=== PATIENT | male | born 1965 | race Caucasian/White ===

== ENCOUNTER 2017-06-23 03:18 | Emergency (ER) | payer MEDICARE, BC ==
[2017-06-23] MEDS ORDERED: METOCLOPRAMIDE 5 MG/ML 2 ML VIAL IVP STA (03:23)
[2017-06-23] MEDS ORDERED: SODIUM CHLORIDE 0.9% 1,000 ML IV STA (03:23)
--- NOTE | 2017-06-23 03:26 | ED ---
General Adult HPI - General Source: patient, RN notes reviewed Mode of arrival: EMS Limitations: no limitations <Evie Bradley - Last Filed: 06/23/17 03:50> <Golden Gonzalez - Last Filed: 06/23/17 05:20> - General Chief complaint: Nausea/Vomiting/Diarrhea Stated complaint: Vomiting/Weakness Time Seen by Provider: 06/23/17 03:19 - History of Present Illness Initial comments: 52-year-old male presents emergency Department chief complaint of nausea vomiting. This started around 2:00. He states while he was trying up he got lightheaded. He states the chest pain or shortness of breath. He has a history of heart issues but states this is nothing like that. Patient states he did eat fish tonight from a different restaurant is wondering if it's related to that. Patient denies any diarrhea any abdominal pain. Patient states after throwing up he does feel somewhat better. Patient was concerned due to his symptoms without that he should be seen. Patient denies any recent fever, chills, shortness of breath, chest pain, back pain, numbness or tingling , dysuria or hematuria, constipation or diarrhea, headaches or visual changes, or any other current symptoms. (Evie Bradley) Patient had several episodes of nausea and vomiting. This was after eating greasy fish. Denies any abdominal pain. Denies chest pain or shortness of breath. Did have some lightheadedness with the episode. (Golden Gonzalez) - Related Data Home Medications Medication Instructions Recorded Confirmed Aspirin 81 mg PO DAILY 01/19/15 01/19/15 Atorvastatin [Lipitor] 80 mg PO HS 01/19/15 01/19/15 Calcium Acetate [PhosLo] 667 mg PO AC-TID 01/19/15 01/19/15 Carvedilol [Coreg] 25 mg PO BID 01/19/15 01/19/15 Clopidogrel [Plavix] 75 mg PO DAILY 01/19/15 01/19/15 Ferrous Gluconate 325 mg PO DAILY 01/19/15 01/19/15 Furosemide [Lasix] 40 mg PO HS 01/19/15 01/19/15 Furosemide [Lasix] 80 mg PO DAILY 01/19/15 01/19/15 INSULIN LISPRO (humaLOG) [humaLOG 7 units INJ AC-TID 01/19/15 01/19/15 (formulary)] Insulin Glargine [Lantus] 25 unit SQ DAILY 01/19/15 01/19/15 Isosorbide Mononitrate ER [Imdur] 60 mg PO DAILY 01/19/15 01/19/15 Allergies Allergy/AdvReac Type Severity Reaction Status Date / Time No Known Allergies Allergy Verified 06/23/17 03:23 Review of Systems ROS Other: All systems not noted in ROS Statement are negative. <Evie Bradley - Last Filed: 06/23/17 03:50> ROS Other: All systems not noted in ROS Statement are negative. <Golden Gonzalez - Last Filed: 06/23/17 05:20> ROS Statement: Those systems with pertinent positive or pertinent negative responses have been documented in the HPI. 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 Last Myocardial Infarction Date:: 2012 History of Any Multi-Drug Resistant Organisms: None Reported Past Surgical History: No Surgical Hx Reported, Heart Catheterization Additional Past Surgical History / Comment(s): 2013 peritoneal dialysis cath Past Anesthesia/Blood Transfusion Reactions: No Reported Reaction Past Psychological History: No Psychological Hx Reported Smoking Status: Former smoker Past Alcohol Use History: None Reported, Occasional Past Drug Use History: None Reported - Past Family History Father Family Medical History: Congestive Heart Failure (CHF), Coronary Artery Disease (CAD), Diabetes Mellitus <Evie Bradley - Last Filed: 06/23/17 03:50> General Exam Limitations: no limitations <Evie Bradley - Last Filed: 06/23/17 03:50> <Golden Gonzalez - Last Filed: 06/23/17 05:20> - General Exam Comments Initial Comments: General: The patient is awake and alert, in no distress, and does not appear acutely ill. Eye: Pupils are equal, round and reactive to light, extra-ocular movements are intact; there is normal conjunctiva bilaterally. No signs of icterus. Ears, nose, mouth and throat: There are moist mucous membranes and no oral lesions. Neck: The neck is supple, there is no tenderness. Cardiovascular: There is a regular rate and rhythm. No murmur, rub or gallop is appreciated. Respiratory: Lungs are clear to auscultation, respirations are non-labored, breath sounds are equal. No wheezes, stridor, rales, or rhonchi. Gastrointestinal: Soft, non-distended, non-tender abdomen without masses or organomegaly noted. There is no rebound or guarding present. No CVA tenderness. Bowel sounds are unremarkable. Back: There is no tenderness to palpation in the midline. There is no obvious deformity. No rashes noted. Musculoskeletal: Normal ROM, no tenderness, There is no pedal edema. There is no calf tenderness or swelling. Sensation intact. Pulses equal bilaterally 2+. Neurological: CN II-XII intact, There are no obvious motor or sensory deficits. Coordination appears grossly intact. Speech is normal. Skin: Skin is warm and dry and no rashes or lesions are noted. Psychiatric: Cooperative, appropriate mood & affect, normal judgment. (Evie Bradley) Course <Evie Bradley - Last Filed: 06/23/17 03:50> <Golden Gonzalez - Last Filed: 06/23/17 05:20> Vital Signs 06/23/17 03:21 Temperature 97.2 F L Pulse Rate 83 Respiratory 20 Rate Blood Pressure 194/98 O2 Sat by Pulse 100 Oximetry - Reevaluation(s) Reevaluation #1: 06/23/17 05:18 I reevaluation, patient is feeling better, no episodes of nausea vomiting the emergency department. Patient denies any pain complaints. (Golden Gonzalez) EKG Findings - EKG Comments: EKG Findings:: normal sinus rhythm 76 bpm, normal axis, no atopy, no S-T depressions or elevations, <Evie Bradley - Last Filed: 06/23/17 03:50> Medical Decision Making <Evie Bradley - Last Filed: 06/23/17 03:50> - Lab Data Result diagrams: 06/23/17 03:55 06/23/17 03:55 <Golden Gonzalez - Last Filed: 06/23/17 05:20> - Medical Decision Making 52-year-old male presents emergency Department chief complaint of nausea vomiting after eating fish at a different resturant. (Evie Bradley) 52-year-old male presenting with nausea and vomiting. Patient had minimal nausea time of presentation. States he had 3 episodes of vomiting. He did have some greasy fried fish earlier this evening. He does not normally eat fried foods. Patient has had history of coronary artery bypass graft, renal transplant, diabetes and hypertension. He denies any associated symptoms. Denies fever, denies abdominal pain, denies chest pain, denies shortness of breath. Laboratory studies including CBC, CMP, and cardiac enzymes are unremarkable. Chest x-ray shows no acute process. EKG is obtained given the nausea which is normal sinus rhythm with no signs of ischemia or infarction. Abdominal x-ray does show a large amount of colonic stool. Patient states his last bowel movement was today and states he has to go again at this time. Patient is offered observation, he declines. He will return to the emergency department with worsening symptoms or the development of chest pain or shortness of breath, fever chills, or worsening nausea and vomiting. Patient is able to follow up with his primary care physician in the next 24-48 hours. Diagnosis: Nausea vomiting (Golden Gonzalez) - Lab Data Lab Results 06/23/17 06/23/17 06/23/17 Range/Units 03:55 03:55 03:55 WBC 8.6 (3.8-10.6) k/uL RBC 4.01 L (4.30-5.90) m/uL Hgb 10.5 L (13.0-17.5) gm/dL Hct 35.1 L (39.0-53.0) % MCV 87.4 (80.0-100.0) fL MCH 26.2 (25.0-35.0) pg MCHC 29.9 L (31.0-37.0) g/dL RDW 19.0 H (11.5-15.5) % Plt Count 338 (150-450) k/uL Neutrophils % 81 % Lymphocytes % 10 % Monocytes % 6 % Eosinophils % 1 % Basophils % 1 % Neutrophils # 6.9 (1.3-7.7) k/uL Lymphocytes # 0.9 L (1.0-4.8) k/uL Monocytes # 0.5 (0-1.0) k/uL Eosinophils # 0.1 (0-0.7) k/uL Basophils # 0.1 (0-0.2) k/uL Hypochromasia Moderate Anisocytosis Slight PT (9.0-12.0) sec INR (<1.2) APTT (22.0-30.0) sec Sodium 141 (137-145) mmol/L Potassium 4.4 (3.5-5.1) mmol/L Chloride 105 (98-107) mmol/L Carbon Dioxide 27 (22-30) mmol/L Anion Gap 9 mmol/L BUN 18 (9-20) mg/dL Creatinine 0.84 (0.66-1.25) mg/dL Est GFR (MDRD) Af Amer >60 (>60 ml/min/1.73 sqM) Est GFR (MDRD) Non-Af >60 (>60 ml/min/1.73 sqM) Glucose 232 H (74-99) mg/dL Calcium 8.6 (8.4-10.2) mg/dL Magnesium 1.8 (1.6-2.3) mg/dL Total Bilirubin 0.3 (0.2-1.3) mg/dL AST 12 L (17-59) U/L ALT 30 (21-72) U/L Alkaline Phosphatase 104 (38-126) U/L Total Creatine Kinase 26 L (55-170) U/L CK-MB (CK-2) 1.1 (0.0-2.4) ng/mL CK-MB (CK-2) Rel Index 4.2 Troponin I <0.012 (0.000-0.034) ng/mL Total Protein 6.6 (6.3-8.2) g/dL Albumin 3.3 L (3.5-5.0) g/dL Amylase <30 L (30-110) U/L Lipase 37 (23-300) U/L 06/23/17 Range/Units 03:55 WBC (3.8-10.6) k/uL RBC (4.30-5.90) m/uL Hgb (13.0-17.5) gm/dL Hct (39.0-53.0) % MCV (80.0-100.0) fL MCH (25.0-35.0) pg MCHC (31.0-37.0) g/dL RDW (11.5-15.5) % Plt Count (150-450) k/uL Neutrophils % % Lymphocytes % % Monocytes % % Eosinophils % % Basophils % % Neutrophils # (1.3-7.7) k/uL Lymphocytes # (1.0-4.8) k/uL Monocytes # (0-1.0) k/uL Eosinophils # (0-0.7) k/uL Basophils # (0-0.2) k/uL Hypochromasia Anisocytosis PT 10.0 (9.0-12.0) sec INR 1.0 (<1.2) APTT 26.6 (22.0-30.0) sec Sodium (137-145) mmol/L Potassium (3.5-5.1) mmol/L Chloride (98-107) mmol/L Carbon Dioxide (22-30) mmol/L Anion Gap mmol/L BUN (9-20) mg/dL Creatinine (0.66-1.25) mg/dL Est GFR (MDRD) Af Amer (>60 ml/min/1.73 sqM) Est GFR (MDRD) Non-Af (>60 ml/min/1.73 sqM) Glucose (74-99) mg/dL Calcium (8.4-10.2) mg/dL Magnesium (1.6-2.3) mg/dL Total Bilirubin (0.2-1.3) mg/dL AST (17-59) U/L ALT (21-72) U/L Alkaline Phosphatase (38-126) U/L Total Creatine Kinase (55-170) U/L CK-MB (CK-2) (0.0-2.4) ng/mL CK-MB (CK-2) Rel Index Troponin I (0.000-0.034) ng/mL Total Protein (6.3-8.2) g/dL Albumin (3.5-5.0) g/dL Amylase (30-110) U/L Lipase (23-300) U/L Disposition <Evie Bradley - Last Filed: 06/23/17 03:50> Time of Disposition: 05:20 <Golden Gonzalez - Last Filed: 06/23/17 05:20> Clinical Impression: Nausea & vomiting Disposition: HOME SELF-CARE Condition: Good Instructions: Acute Nausea and Vomiting (ED) Referrals: Pedro Grayson MD [STAFF PHYSICIAN] - 1-2 days
[2017-06-23 04:07] LABS: Anisocytosis Slight; Basophils # (A) 0.1 k/uL (0-0.2); Basophils % (A) 1 %; CH 26.6; CHCM 30.6; Eosinophils # (A) 0.1 k/uL (0-0.7); Eosinophils % (A) 1 %; HCT 35.1 % (39.0-53.0); HDW 2.78; HGB 10.5 gm/dL (13.0-17.5); Hypochromasia Moderate; Luc # (Auto) 0.14; Luc % (Auto) 2; Lymphocytes # (A) 0.9 k/uL (1.0-4.8); Lymphocytes % (A) 10 %; MCH 26.2 pg (25.0-35.0); MCHC 29.9 g/dL (31.0-37.0); MCV 87.4 fL (80.0-100.0); Mean Platelet Volume 7.5; Monocytes # (A) 0.5 k/uL (0-1.0); Monocytes % (A) 6 %; Neutrophils # (A) 6.9 k/uL (1.3-7.7); Neutrophils % (A) 81 %; RBC 4.01 m/uL (4.30-5.90); WBC 8.6 k/uL (3.8-10.6)
[2017-06-23 04:16] LABS: ALT 30 U/L (21-72); AST 12 U/L (17-59); Alkaline Phosphatase 104 U/L (38-126); Amylase <30 U/L (30-110); Anion Gap 9 mmol/L; Blood Urea Nitrogen 18 mg/dL (9-20); Calcium 8.6 mg/dL (8.4-10.2); Carbon Dioxide 27 mmol/L (22-30); Chloride 105 mmol/L (98-107); Glucose 232 mg/dL (74-99); Magnesium 1.8 mg/dL (1.6-2.3); Non-African American GFR(MDRD) >60 (>60 ml/min/1.73 sqM); Partial Thromboplastin Time 26.6 sec (22.0-30.0); Potassium 4.4 mmol/L (3.5-5.1); Sodium 141 mmol/L (137-145); Total Bilirubin 0.3 mg/dL (0.2-1.3); Total Protein 6.6 g/dL (6.3-8.2)
--- NOTE | 2017-06-23 04:22 | XR ---
EXAM: XR Abdomen Complete, 2 or More Views CLINICAL HISTORY: Reason: Pain TECHNIQUE: Frontal view of the abdomen/pelvis with upright view of the abdomen. COMPARISON: No relevant prior studies available. FINDINGS: Intraperitoneal space: No free air. Gastrointestinal tract: Colonic fecal stasis. Bones/joints: Unremarkable. IMPRESSION: Colonic fecal stasis.
--- NOTE | 2017-06-23 04:22 | XR ---
EXAM: XR Chest, 2 Views CLINICAL HISTORY: Reason: Chest Pain TECHNIQUE: Frontal and lateral views of the chest. COMPARISON: 01/19/15 FINDINGS: Lungs: Unremarkable. No consolidation. Pleural space: Unremarkable. No pneumothorax. Heart: Mild cardiomegaly. CABG changes noted. Mediastinum: Unremarkable. Bones/joints: Unremarkable. Tubes, lines and devices: Right arm PICC line in place with tip in the SVC. IMPRESSION: No acute findings.
[2017-06-23 04:37] LABS: Creatine Kinase 26 U/L (55-170)
[2017-06-23 04:50] LABS: Creatine Kinase MB 1.1 ng/mL (0.0-2.4); Troponin I <0.012 ng/mL (0.000-0.034)
[2017-06-23 05:33] VITALS: BP 120/51; PULSE 88; RESP 16; TEMP 97.3
== END 2017-06-23 05:31 | disposition home or self-care (01) ==
LOC: EC 03:18
DX: R11.2 Nausea with vomiting, unspecified (principal); R42 Dizziness and giddiness; I25.10 Atherosclerotic heart disease of native coronary artery without angina pectoris; I11.0 Hypertensive heart disease with heart failure; I50.9 Heart failure, unspecified; E78.5 Hyperlipidemia, unspecified; E11.9 Type 2 diabetes mellitus without complications; I25.2 Old myocardial infarction; Z87.891 Personal history of nicotine dependence; Z79.82 Long term (current) use of aspirin; Z79.4 Long term (current) use of insulin; Z79.899 Other long term (current) drug therapy; Z79.01 Long term (current) use of anticoagulants
CPT/HCPCS: 36415; 93005; 80053; 82150; 82550; 82553; 83690; 83735; 84484; 85025; 85610; 85730; 71020; 74020; 99284; 96374; J2765